=== PATIENT | female | born 1970 | race Two or more races ===

== ENCOUNTER 2019-09-16 00:40 | Emergency (ER) | payer OTHER ==
[~2019-09-16] VITALS: Ht 157.5 cm; Wt 86.2 kg
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
[2019-09-16] MEDS ORDERED: MORPHINE SULFATE INJ 2 MG/ML DISP.SYRIN IV ONE (01:30)
[2019-09-16] MEDS ORDERED: MORPHINE SULFATE INJ 2 MG/ML DISP.SYRIN ONE (01:30)
[2019-09-16] MEDS ORDERED: MORPHINE SULFATE INJ 2 MG/ML DISP.SYRIN IM ONE (01:30)
[2019-09-16] MEDS ORDERED: CT SWABBABLE VALVE TRANS SET 1 EA INFUS.SET MC ONE (01:40)
[2019-09-16] MEDS ORDERED: IOHEXOL-300 100 ML VIAL IV ONE (01:40)
[2019-09-16] MEDS ORDERED: IV NS 0.9% 250 ML IV ONE (01:41)
[2019-09-16 01:48] LABS: BASOPHILS # (AUTO) 0.1 /CMM (0.0-0.2); BASOPHILS % (AUTO) 0.8 % (0.0-2.0); EOSINOPHILS % (AUTO) 1.1 % (0.0-6.0); HEMATOCRIT 43 % (33-45); HEMOGLOBIN 14.4 g/dL (11.5-14.8); LYMPHOCYTES # (AUTO) 2.7 /CMM (0.8-4.8); LYMPHOCYTES % (AUTO) 25.1 % (20.0-44.0); MEAN CORPUSCULAR HGB CONC 34 g/dl (31.0-36.0); MEAN CORPUSCULAR VOLUME 91 fL (82-100); MONOCYTES % (AUTO) 9.3 % (2.0-12.0); NEUTROPHILS % (AUTO) 63.7 % (43.0-81.0); PLATELET COUNT (AUTO) 252 /CMM (150-450); RED BLOOD CELL COUNT(AUTO) 4.68 MIL/uL (4.0-5.2)
[2019-09-16 01:53] LABS: CALCIUM, SERUM 8.7 mg/dL (8.5-10.1); CREATININE 0.7 mg/dL (0.6-1.3); POTASSIUM 3.3 mmol/L (3.5-5.1)
[2019-09-16 01:59] LABS: ALBUMIN 3.9 g/dL (3.4-5.0); BILIRUBIN,DIRECT 0.1 mg/dL (0.0-0.2); BILIRUBIN,TOTAL 0.3 mg/dL (0.2-1.0); TOTAL PROTEIN, SERUM 7.7 g/dL (6.4-8.2)
--- NOTE | 2019-09-16 02:05 | NUR ---
at the bed side
[2019-09-16 03:16] LABS: APPEARANCE,URINE SL CLOUDY (CLEAR); BILIRUBIN,URINE NEGATIVE (NEGATIVE); BLOOD, URINE SMALL Ery/uL (NEGATIVE); COLOR,URINE YELLOW (YELLOW); KETONES,URINE NEGATIVE (NEGATIVE); LEUKOCYTE ESTERASE ,URINE NEGATIVE (NEGATIVE); NITRITE, URINE NEGATIVE (NEGATIVE); PROTEIN,URINE NEGATIVE (NEGATIVE); UGLUCOSE NEGATIVE (NEGATIVE); UROBILINOGEN,URINE 0.2 EU/dL (0.2)
--- NOTE | 2019-09-16 05:09 | NUR ---
Patient discharged to home in stable condition. Written and verbal after care instructions given. Patient verbalizes understanding of instruction.IV removed. Catheter intact and site benign. Pressure and 4x4 applied to site. No bleeding noted. Pt ambulatory with a steady gait
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
[2019-09-16 05:11] VITALS: BP 160/93
== END 2019-09-16 05:12 | disposition home or self-care (01) ==
LOC: ER 00:42
DX: S22.42XA Multiple fractures of ribs, left side, initial encounter for closed fracture (principal); S50.02XA Contusion of left elbow, initial encounter; S50.12XA Contusion of left forearm, initial encounter; N63.0 Unspecified lump in unspecified breast; V49.49XA Driver injured in collision with other motor vehicles in traffic accident, initial encounter; Y93.89 Activity, other specified; Y92.488 Other paved roadways as the place of occurrence of the external cause; Y99.8 Other external cause status
CPT/HCPCS: 36415; 71045; 73080; 74177; 80048; 80076; 81001; 85025; 85730; 86850; 96374; 99284; J2270; J7050; Q9967; 81000-TC